=== PATIENT | male | born 1975 | race Caucasian/White ===

== ENCOUNTER 2017-04-28 21:15 | Emergency (ER) | payer SELFPAY ==
[~2017-04-28] VITALS: Ht 180.3 cm; Wt 79.6 kg
[~2017-04-28 21:15] MED LIST: CEPH-460 PO; IBUP1TAB7 PO; METH40TA PO
[2017-04-28 21:30] VITALS: BP 153/97; PULSE 81; RESP 22; TEMP 97.8; O2SAT 97
[2017-04-28] MEDS ORDERED: SODIUM CHLOR 0.9% 1000 ML INJ 1,000 ML IV ONE (22:06)
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
[2017-04-28] MEDS ORDERED: ONDANSETRON HCL 4 MG/2 ML VIAL IV PUSH ONE (22:15)
[2017-04-28] MEDS ORDERED: SODIUM CHLORIDE 0.9% FLUSH 10 ML FLUSH IVF PRN (22:15)
[2017-04-28] MEDS ORDERED: KETOROLAC TROMETHAMINE 30 MG/ML (IVP) VIAL IV PUSH ONE (22:15)
[2017-04-28] MEDS ORDERED: TAMSULOSIN HCL 0.4 MG CAP PO ONE (22:15)
[2017-04-28] MEDS ORDERED: HYDROmorphone HCL PF 1 MG/ML VIAL IV PUSH ONE (22:15)
[2017-04-28 22:32] LABS: AUTOMATED NEUTROPHIL # 17.2 TH/MM3 (1.8-7.7); BASOPHIL # 0.4 TH/MM3 (0-0.2); BASOPHIL % 1.8 % (0.0-2.0); EOSINOPHIL # 0.3 TH/MM3 (0-0.4); EOSINOPHIL % 1.5 % (0.0-4.0); HEMATOCRIT 43.8 % (39.0-51.0); LYMPH % 6.3 % (9.0-44.0); LYMPHOCYTE # 1.3 TH/MM3 (1.0-4.8); MEAN CELL VOLUME 86.1 FL (80.0-100.0); MEAN CORPUSCULAR HEMOGLOBIN 29.3 PG (27.0-34.0); MONO % 5.1 % (0.0-8.0); NEUT % 85.3 % (16.0-70.0); PLATELET COUNT 205 TH/MM3 (150-450); RED BLOOD COUNT 5.08 MIL/MM3 (4.50-5.90); RED CELL DISTRIBUTION WIDTH 12.4 % (11.6-17.2); WHITE BLOOD COUNT 20.2 TH/MM3 (4.0-11.0)
[2017-04-28 22:36] LABS: HEMO FLAGS DIFF FINAL
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
[2017-04-28 22:39] LABS: POTASSIUM 3.6 MEQ/L (3.5-5.1)
[2017-04-28 22:42] LABS: BICARBONATE 26.9 MEQ/L (21.0-32.0)
[2017-04-28] MEDS ORDERED: HYDROmorphone HCL PF 1 MG/ML VIAL IVP ONE (22:45)
[2017-04-28 22:47] VITALS: BP 155/86; PULSE 82; RESP 16; O2SAT 96
[2017-04-28 23:03] LABS: BLOOD, URINE SMALL (NEG); GLUCOSE,URINE 500 mg/dL (NEG); KETONE, URINE 15 mg/dL (NEG); NITRITE,URINE NEG (NEG); PH, URINE 5.5 (5.0-8.5)
[2017-04-28 23:07] LABS: URINE COLOR YELLOW (YELLW/STRAW)
[2017-04-28 23:08] LABS: COMMENT (UR) CULT NOT INDICATED; CULTURE IF INDICATED CULT NOT INDICATED; SQUAMOUS EPITHELIAL CELL URINE 0-5 /hpf (0-5); WBC, URINE 0-2 /hpf (0-5)
[2017-04-28] MEDS ORDERED: PERC5TAB12 PO (23:32)
[2017-04-28] MEDS ORDERED: PROC10TA PO (23:32)
[2017-04-28] MEDS ORDERED: IBUP1TAB7 PO (23:36)
[2017-04-28 23:45] VITALS: BP 150/78; PULSE 82; RESP 18; O2SAT 97
[2017-04-28] MEDS ORDERED: oxyCODONE/ACETAMINOPHEN 5 MG/325 MG TAB PO ONE (23:45)
[2017-04-28] MEDS ORDERED: PROCHLORPERAZINE MALEATE 10 MG TAB PO ONE (23:45)
== END 2017-04-29 00:09 | disposition home or self-care (01) ==
LOC: PHED 21:15
DX: R10.9 Unspecified abdominal pain (principal); R07.81 Pleurodynia; R31.9 Hematuria, unspecified; R11.2 Nausea with vomiting, unspecified; K76.0 Fatty (change of) liver, not elsewhere classified; Z72.0 Tobacco use
CPT/HCPCS: 74176; 80048; 81001; 85025; 96361; 96374; 96375; 96376; 99285; J1170; J1885; J2405; J7030; Q0164